=== PATIENT | female | born 1965 | race Caucasian/White ===

== ENCOUNTER 2021-03-12 15:20 | Inpatient (IN) ==
[2021-03-12 20:37] LABS: Calcium 7.7 MG/DL (8.5-10.1); Osmolality,Calculated 274.5 MOS/KG (273-304); Potassium 2.7 MMOL/L (3.5-5.1)
[2021-03-12] MEDS ORDERED: POTASSIUM CHLORIDE RIDER 10 MEQ/100 ML PREMIX IV PRN (21:28)
[2021-03-12] MEDS: PIPERACILLIN/TAZOBACTAM 3,375 MG in SODIUM CHLORIDE 0.9% 100 ML IV SCH (21:29)
[2021-03-12] MEDS: POTASSIUM CHLORIDE 20 MEQ TABLET PO PRN ×2 (21:53→23:42)
[2021-03-13] MEDS: POTASSIUM CHLORIDE 20 MEQ TABLET PO PRN ×2 (01:23→03:00)
[2021-03-13] MEDS: PIPERACILLIN/TAZOBACTAM 3,375 MG in SODIUM CHLORIDE 0.9% 100 ML IV SCH ×3 (05:03→20:18)
[2021-03-13 07:49] LABS: Basophils % 0.3 % (0.0-0.8); Eosinophils # 0.2 10*3/uL (0.0-0.87); Eosinophils % 3.2 % (0.00-10.9); Hematocrit 35.1 VOL% (35.7-47.0); Hemoglobin 11.3 GM/DL (12.0-16.0); Immature Granulocytes % 0.3 %; Immature Granulocytes Absolute 0.02 #; Lymphocytes # 1.6 10*3/uL (1.4-4.0); Lymphocytes % 20.9 % (21.3-54.2); Mean Corpuscular HGB Conc 32.2 GM/DL (32-36); Mean Corpuscular Volume 91.9 FL (87-102); Mean Platelet Volume 10.2 FL (9.6-12.0); Monocytes % 5.9 % (1.7-12.7); Neutrophils % 69.4 % (38.7-73.9); Platelet Count 156 T/CUMM (130-400); Red Blood Count 3.82 MC/CUMM (3.8-5.5); Red Cell Distribution Width 14.5 % (9.3-17.3); White Blood Count 7.6 T/CUMM (4-12)
[2021-03-13 08:16] LABS: Osmolality,Calculated 280.1 MOS/KG (273-304); Potassium 3.9 MMOL/L (3.5-5.1)
[2021-03-13] MEDS: ISOSORBIDE MONONITRATE 30 MG TABLET PO SCH ×2 (08:23→08:25)
[2021-03-13] MEDS: ASPIRIN EC 81 MG TABLET PO SCH ×2 (08:23→08:25)
[2021-03-13] MEDS ORDERED: BUPIVACAINE MPF 0.25% 30 ML VIAL ONE (12:54)
[2021-03-13] MEDS ORDERED: LIDOCAINE 1%/EPI INJ 20 ML VIAL ONE (12:54)
[2021-03-13] MEDS ORDERED: MIDAZOLAM 2 MG/2 ML VIAL ONE (13:27)
[2021-03-13] MEDS ORDERED: fentaNYL 100 MCG/2 ML VIAL ONE (13:27)
[2021-03-13] MEDS ORDERED: propofoL 200 MG/20 ML VIAL IV ONE (13:27)
[2021-03-13] MEDS ORDERED: LACTATED RINGERS 1,000 ML IV SCH (14:30)
[2021-03-13] MEDS ORDERED: ONDANSETRON 4 MG/2 ML VIAL IV PRN (15:01)
[2021-03-13] MEDS ORDERED: HYDROmorphone 2 MG/1 ML VIAL IV PRN (15:01)
[2021-03-13] MEDS ORDERED: ATORVASTATIN 40 MG TABLET PO SCH (21:00)
[2021-03-14] MEDS: PIPERACILLIN/TAZOBACTAM 3,375 MG in SODIUM CHLORIDE 0.9% 100 ML IV SCH (04:26)
[2021-03-14 07:30] VITALS: BP 98/41
[2021-03-14] MEDS: ASPIRIN EC 81 MG TABLET PO SCH (08:13)
[2021-03-14] MEDS: ISOSORBIDE MONONITRATE 30 MG TABLET PO SCH (08:14)
== END 2021-03-14 11:26 | disposition home health service (06) | DRG 951 ==
LOC: N.5E 15:54
PROVIDERS: ADMIT Surgery; ATTEND Surgery